=== PATIENT | female | born 2000 | race Two or more races ===

== ENCOUNTER 2021-05-01 09:44 | Day surgery (SDC) | payer MEDICAID ==
[~2021-05-01] VITALS: Ht 160 cm; Wt 64.0 kg
[2021-05-01 20:18] VITALS: BP 84/55
== END 2021-05-01 22:20 | disposition home or self-care (01) ==
LOC: ED 10:12 → OUT 11:34 → UNDOADMIN 11:34 → EDIP 11:34 → EDSTATUS 12:08 → 4NE 14:30 → EDIP 14:30 → UNDODISIN 22:20 → OUT 22:20
PROVIDERS: ATTEND Emergency Medicine
DX: K35.80 Unspecified acute appendicitis (principal); Z20.822 Contact with and (suspected) exposure to COVID-19; Z79.899 Other long term (current) drug therapy